=== PATIENT | male | born 1945 | race Caucasian/White ===

== ENCOUNTER 2016-09-17 12:13 | Emergency (ER) | payer OTHER ==
[~2016-09-17] VITALS: Ht 165.1 cm; Wt 68.0 kg
--- NOTE | 2016-09-17 12:30 | NUR ---
PATIENT BIB RA D/T UNABLE TO CARE FOR SELF X 1 DAY. PATIENT IS A/OX 4. BREATHING EVEN AND UNLABORED. NO SOB, NO DISTRESS. PATIENT IS TACHYCARDIC, WITH SLIGHTLY ELEVATED BP. SAFTEY AND COMFORT MEASURES IN PLACE. AWAITING MD ORDERS.
--- NOTE | 2016-09-17 12:55 | NUR ---
PATIENT REFUSED IV INSERTION FOR LABETOLOL ADMIN. MEDICATION NOT ADMINISTERED. MADE AWARE.
[2016-09-17] MEDS ORDERED: LABETALOL HCL (100MG) 100 MG TABLET PO ONE (13:00)
[2016-09-17] MEDS ORDERED: LABETALOL HCL IV 100MG VIAL IV ONE (13:00)
[2016-09-17] MEDS ORDERED: LABETALOL HCL (100MG) 100 MG TABLET ONE (13:11)
--- NOTE | 2016-09-17 13:39 | NUR ---
PTS CAREGIVER GILMA CALLED. SAID HE SPOKE TO THE PT AND WILL BE HERE SOON TO PICK HIM UP
[2016-09-17 14:25] VITALS: BP 144/92
--- NOTE | 2016-09-17 14:26 | NUR ---
Patient's caregiver arrived to bedside. Patient discharged to home in stable condition. Written and verbal after care instructions given. Patient verbalizes understanding of instruction.
== END 2016-09-17 14:25 | disposition home or self-care (01) ==
LOC: ER 12:15
DX: G20 Parkinson's disease (principal); I10 Essential (primary) hypertension; Z86.73 Personal history of transient ischemic attack (TIA), and cerebral infarction without residual deficits
CPT/HCPCS: A4606; Z7610

== ENCOUNTER 2017-09-28 02:35 | Inpatient (IN) | payer MEDICAID, OTHER ==
[~2017-09-28] VITALS: Ht 172.7 cm; Wt 62.6 kg
--- NOTE | 2017-09-28 02:45 | NUR ---
[id number] FR HOME FOR SOB, N/V, & LOW O2 SAT 85% ON RA. PT PLACED ON NR 15L/M CONSTRUCTION MATERIALS TESTER. PT IS AAOX4. SKIN HOT AND MOIST TO TOUCH. PER EMS, PT WAS EATING AND VOMITTED CONSTRUCTION MATERIALS TESTER. PT DENIES BEING NAUSEATED UPON ARRIVAL. MILD S/S OF DISTRESS NOTED IN PT. PT PLACED ON CYBER LEGAL ADVISOR AND POX.RESP EVEN AND UNLABORD WITH RR OF 24-28. PER MD, PT PLACED ON SIMPLE MASK AT 8L/M. MD BEDSIDE FOR EVAL. WILL CONTINUE TO MONITOR PT.
[2017-09-28] MEDS ORDERED: KETOROLAC TROMETHAMINE INJ 60 MG/2 ML VIAL IM ONE (02:49)
[2017-09-28] MEDS ORDERED: ONDANSETRON HCL/PF 4 MG/2 ML VIAL ONE (02:56)
[2017-09-28] MEDS ORDERED: ACETAMINOPHEN 650 MG/SUPP.RECT RC ONE ×2 (02:56→03:00)
[2017-09-28] MEDS ORDERED: ONDANSETRON HCL/PF 4 MG/2 ML VIAL IVP ONE (03:00)
[2017-09-28] MEDS ORDERED: IV NS 0.9% 1,000 ML BAG IV ONE (03:00)
[2017-09-28 03:04] LABS: APPEARANCE,URINE CLOUDY (CLEAR); BILIRUBIN,URINE NEGATIVE (NEGATIVE); BLOOD, URINE 3+ Ery/uL (NEGATIVE); COLOR,URINE YELLOW (YELLOW); KETONES,URINE NEGATIVE (NEGATIVE); LEUKOCYTE ESTERASE ,URINE 3+ (NEGATIVE); NITRITE, URINE NEGATIVE (NEGATIVE); PH,URINE 6.5 (5.0-8.0); PROTEIN,URINE 1+ mg/dl (NEGATIVE); UGLUCOSE NEGATIVE (NEGATIVE); UROBILINOGEN,URINE 0.2 EU/dL (0.2)
[2017-09-28 03:05] LABS: HEMATOCRIT 42 % (39-51); HEMOGLOBIN 13.8 g/dL (13.5-17.5); LYMPHOCYTES # (AUTO) 0.4 /CMM (0.8-4.8); LYMPHOCYTES % (AUTO) 2.9 % (20.0-44.0); MEAN CORPUSCULAR HEMOGLOBIN 30 PG (26.0-33.0); MEAN CORPUSCULAR HGB CONC 33 g/dl (31.0-36.0); MEAN CORPUSCULAR VOLUME 92 fL (80-96); MONOCYTES # (AUTO) 0.1 /CMM (0.1-1.30); MONOCYTES % (AUTO) 0.5 % (2.0-12.0); NEUTROPHILS # (AUTO) 11.7 /CMM (1.8-8.9); NEUTROPHILS % (AUTO) 96.6 % (43.0-81.0); PLATELET COUNT (AUTO) 271 /CMM (150-450); RDW COEFFICIENT OF VARIATION 13.1 (11.5-15.0); RED BLOOD CELL COUNT(AUTO) 4.59 MIL/uL (4.5-6.0); WHITE BLOOD COUNT (AUTO) 12.1 K/uL (4.3-11.0)
[2017-09-28 03:18] LABS: CALCIUM, SERUM 8.7 mg/dL (8.5-10.1); CARBON DIOXIDE 25 mmol/L (21-32); CHLORIDE 102 mmol/L (98-107); CREATININE 1.7 mg/dL (0.6-1.3); GLUCOSE 231 mg/dL (74-106); POTASSIUM 4.2 mmol/L (3.5-5.1); SODIUM SERUM 138 mmol/L (136-145); UREA NITROGEN, BLOOD 20 mg/dL (7-18)
[2017-09-28 03:20] LABS: INR 0.95 (0.87-1.13)
[2017-09-28 03:25] LABS: ALANINE AMINOTRANSFERASE 12 U/L (12-78); ALBUMIN 3.4 g/dL (3.4-5.0); ALKALINE PHOSPHATASE 119 U/L (46-116); ASPARTATE AMINOTRANSFERASE 23 U/L (15-37); BILIRUBIN,DIRECT 0.1 mg/dL (0.0-0.2); BILIRUBIN,TOTAL 0.6 mg/dL (0.2-1.0); TOTAL PROTEIN, SERUM 7.1 g/dL (6.4-8.2); TROPONIN I < 0.017 ng/mL (0.00-0.056)
[2017-09-28] MEDS ORDERED: LEVOFLOXACIN 750 MG /D5W 150ML PIGGYBACK IV ONE (03:30)
[2017-09-28] MEDS ORDERED: AZTREONAM 1 G in IV NS 0.9% 100 ML IV ONE (03:30)
[2017-09-28] MEDS ORDERED: AZTREONAM 1 G VIAL ONE (03:46)
[2017-09-28] MEDS ORDERED: LEVOFLOXACIN 750 MG /D5W 150ML 150 ML IV ONE (03:46)
--- NOTE | 2017-09-28 04:20 | NUR ---
REPORT GIVEN TO MONSE BARRETTELIA FOR LEVI
--- NOTE | 2017-09-28 04:24 | NUR ---
ENDORSED TO MONSE SINCLAIR CARLOS A TO START IV MEDICATION LEVAQUIN 750MG UPON ADMISSION TO FLOOR PER MD.
[2017-09-28] MEDS ORDERED: ACETAMINOPHEN 325 MG TABLET PO PRN (04:30)
[2017-09-28] MEDS ORDERED: MAGNESIUM HYDROXIDE 30 ML UDC PO PRN (04:30)
[2017-09-28] MEDS ORDERED: MAG HYDROX/AL HYDROX/SIMETH 30 ML UDC PO PRN (04:30)
[2017-09-28] MEDS ORDERED: HYDROCODONE/APAP 5/325MG 1 EACH TABLET PO PRN (04:30)
[2017-09-28] MEDS ORDERED: Z GUARD REMEDY 2 OZ OINT TP PRN (04:30)
[2017-09-28] MEDS ORDERED: ONDANSETRON HCL/PF 4 MG/2 ML VIAL IVP PRN (04:30)
[2017-09-28] MEDS: IV NS 0.9% 1,000 ML IV PRN (04:54)
[2017-09-28 05:00] VITALS: BP 100/61
--- NOTE | 2017-09-28 05:00 | NUR ---
MS DISPATCH MACHINE RUNNER NOTES RECEIVED FROM ER THIS 72 YO MALE,A/O X3,LIVES ALONE WITH CAREGIVER,WITH PRESENTING SYMPTOMS OF SOB NAUSEA AND VOMITING,WITH O2 SAT 85% ON RA. ADMITTED TO MED SURG BY DR ISAAC FOR PNA/UTI.WITH SALINE LOCK LEFT HAND #20,SALINE LOCK RIGHT FOREARM #18,NS 75ML/HR RATE IN PROGRESS.NOTED DRY WOUND ON LEFT HEEL 6X4 CM AND 1X1CM IN MEASURES.NO DISCHARGES NOTED.NOTED LUMP ON LEFT ELBOW AND RIGHT UPPER BACK.PICTURES TAKEN ON CHART.BED ON LOWEST POSITION AND LOCK.CALL LIGHT IN REACH,NEEDS ANTICIPATED.
--- NOTE | 2017-09-28 05:19 | NUR ---
MS RN NOTES STARTED ON LEVAQUIN 750MG IVP ONE TIME DOSE ORDERED BY ER DOCTOR.
[2017-09-28] MEDS ORDERED: LEVOFLOXACIN 750 MG /D5W 150ML 750 MG in PREMIX 1 EA IV ONE (05:30)
--- NOTE | 2017-09-28 05:30 | NUR ---
MS RN NOTES REPORTED BY PARTNERSHIP MARKETING MANAGER,LATEST LACTIC ACID POST 2,152 LITERS ON NS WAS 4.3.
--- NOTE | 2017-09-28 06:30 | NUR ---
MS RN NOTES RESTING COMFORTABLY ON BED,A/O X3,WORRIED ABOUT IS CAREGIVER.IV ABX LEVAQUIN AND ZOSYN TOLERATED WELL.IVF NS AT 75ML/HR RATE IN PROGRESS.KEPT NPO ORDERED.FOR SWALLOWING/PT/OT EVAL.WOUND CARE CONSULT TRIGGERED.O2 8-9 LITERS FACE MASK,O2 SAT 96%.IN NO ACUTE DISTRESS.WILL ENDORSE TO DAY NURSE FOR LEVI.
[2017-09-28] MEDS ORDERED: PIPERACILLIN /TAZOBACTAM 2.25 G VIAL IV ONE (06:36)
[2017-09-28] MEDS: PIPERACILLIN /TAZOBACTAM 2.25 G in IV NS 0.9% 50 ML IV SCH ×3 (06:49→17:35)
[2017-09-28 08:00] VITALS: BP 113/67
--- NOTE | 2017-09-28 08:00 | NUR ---
MS RN NOTES Pt in bed at lowest position, A/O x3. On 10L via face mask with no trouble breathing, will titrate as needed. Worried about caregiver and how he will get home, will try to contact caregiver. Currently NPO awaiting Speech Therapy Evaluation. Call light within reach and will continue to monitor.
--- NOTE | 2017-09-28 08:30 | NUR ---
MS RN Notes Caregiver presented at Bedside. Titrated O2 to 7L via face mask. Call light within reach and will continue to monitor
--- NOTE | 2017-09-28 08:50 | NUR ---
MS RN Notes Titrated pt Oxygen from 7L to 5L and switched him to Nasal Cannula. Call light within reach and will continue to monitor.
[2017-09-28] MEDS ORDERED: CARB1TAB21 PO (09:01)
[2017-09-28] MEDS ORDERED: CLOP75TA15 PO (09:01)
[2017-09-28] MEDS ORDERED: TEMA15CA PO (09:01)
[2017-09-28] MEDS ORDERED: OMEP20CA10 PO (09:01)
[2017-09-28] MEDS ORDERED: VALS1TAB6 PO (09:01)
--- NOTE | 2017-09-28 10:00 | NUR ---
MS RN NOTES DR FLORES MADE AWARE PATIENTS MED RECON IS NOT REVIEWED. STATES HE WILL REVIEW.
[2017-09-28] MEDS ORDERED: FEE PK DOSING 1 MIN EA MC ONE (11:35)
[2017-09-28] MEDS ORDERED: VANCOMYCIN 1 GM in IV D5W 250 ML IV ONE (12:00)
--- NOTE | 2017-09-28 12:00 | NUR ---
MS RN NOTES PATIENTS O2 TITRATED TO 3L VIA NASAL CANULA. TOLERATED WELL.
[2017-09-28] MEDS: ALBUTEROL FS 2.5 MG/0.5 ML VIAL.NEB NEB PRN (13:40)
[2017-09-28] MEDS: IPRATROPIUM NEB FS 0.5 MG/2.5 ML AMPUL.NEB NEB PRN (13:40)
[2017-09-28 15:34] LABS: RBC,URINE 21-50 /HPF (0-2); WBC,URINE 21-50 /HPF (0-3)
[2017-09-28 15:35] LABS: BACTERIA,URINE Many /HPF (None Seen); SQUAMOUS EPITHELIAL CELL,UR Many /HPF (None Seen)
[2017-09-28 16:00] VITALS: BP 134/80
[2017-09-28] MEDS: LACTOBACILLUS RHAMNOSUS GG 1 EACH CAP.SPRINK PO SCH (17:00)
[2017-09-28] MEDS: CARBIDOPA/LEVODOPA 25/100 MG 1 UDTAB PO SCH (19:20)
--- NOTE | 2017-09-28 19:27 | NUR ---
MS RN NOTES PATIENT IN BED RESTING NO SOB OR ACUTE DISTRESS NOTED. ALL DUE MEDICATIONS ADMINISTERED. ALL NEEDS MET ENDORSED CARE TO PM SHIFT.
--- NOTE | 2017-09-28 19:30 | NUR ---
MS/RN OPENING NOTES PT RECEIVED ASLEEP, AROUSABLE TO NAME. A/OX3. ON 3L O2 VIA NC, BREATHING EVEN AND UNLABORED. DENIES SOB OR PAIN AT THIS TIME. CONDOM CATH IN PLACE AND DRAINING TO GRAVITY. IV TO RFA PATENT AND INTACT RUNNING IVF ORDERED. BED IN LOW/LOCKED POSITION WITH CALL LIGHT IN REACH, SIDE RAILS UPX2. HEELS OFFLOADED. WILL CONTINUE TO MONITOR
[2017-09-28] MEDS ORDERED: ALBU1.257 INH (19:56)
[2017-09-28] MEDS ORDERED: TRAZ-182 PO (19:56)
[2017-09-28 19:58] VITALS: BP 122/70
[2017-09-28 20:00] VITALS: BP 122/70
[2017-09-28] MEDS ORDERED: FLUT12AE5 INH (20:05)
--- NOTE | 2017-09-28 21:10 | NUR ---
MS/RN NOTES PAGED [facility] FOR ORDERS FOR SLEEPING PILL PER PT REQUEST. AWAITING CALL BACK Addendum: 09/28/17 at 2146 by SYED SANCHEZ RN MISSED CALL BACK FROM DR. ISAAC. PAGED [facility] AGAIN AND SPOKE TO . MADE AWARE THAT PT TAKES TEMAZEPAM 15MG PO HR PRN. OKAY TO CONTINUE
[2017-09-28] MEDS: TEMAZEPAM 15 MG CAPSULE PO PRN (23:50)
[2017-09-29] MEDS: IV NS 0.9% 1,000 ML IV PRN ×2 (00:07→17:50)
[2017-09-29] MEDS: PIPERACILLIN /TAZOBACTAM 2.25 G in IV NS 0.9% 50 ML IV SCH ×2 (00:07→05:26)
[2017-09-29] MEDS ORDERED: VANCOMYCIN 0.75 GM in IV D5W 250 ML IV SCH (06:00)
[2017-09-29 06:40] LABS: ALANINE AMINOTRANSFERASE 20 U/L (12-78); ALBUMIN 2.4 g/dL (3.4-5.0); ALKALINE PHOSPHATASE 83 U/L (46-116); ASPARTATE AMINOTRANSFERASE 23 U/L (15-37); BILIRUBIN,TOTAL 0.5 mg/dL (0.2-1.0); CALCIUM, SERUM 8.3 mg/dL (8.5-10.1); CARBON DIOXIDE 29 mmol/L (21-32); CHLORIDE 107 mmol/L (98-107); CREATININE 1.2 mg/dL (0.6-1.3); EOSINOPHILS % (AUTO) 0.1 % (0.0-6.0); GLUCOSE 93 mg/dL (74-106); HEMATOCRIT 35 % (39-51); HEMOGLOBIN 11.7 g/dL (13.5-17.5); LYMPHOCYTES # (AUTO) 0.7 /CMM (0.8-4.8); MAGNESIUM 1.9 mg/dL (1.8-2.4); MEAN CORPUSCULAR HEMOGLOBIN 31 PG (26.0-33.0); MEAN CORPUSCULAR HGB CONC 34 g/dl (31.0-36.0); MEAN CORPUSCULAR VOLUME 92 fL (80-96); MONOCYTES # (AUTO) 0.5 /CMM (0.1-1.30); MONOCYTES % (AUTO) 5.3 % (2.0-12.0); NEUTROPHILS # (AUTO) 8.7 /CMM (1.8-8.9); NEUTROPHILS % (AUTO) 87.6 % (43.0-81.0); PHOSPHORUS 2.8 mg/dL (2.5-4.9); PLATELET COUNT (AUTO) 175 /CMM (150-450); RDW COEFFICIENT OF VARIATION 13.5 (11.5-15.0); RED BLOOD CELL COUNT(AUTO) 3.78 MIL/uL (4.5-6.0); SODIUM SERUM 143 mmol/L (136-145); TOTAL PROTEIN, SERUM 5.7 g/dL (6.4-8.2); UREA NITROGEN, BLOOD 16 mg/dL (7-18); WHITE BLOOD COUNT (AUTO) 9.9 K/uL (4.3-11.0)
[2017-09-29 06:44] LABS: CREATINE KINASE, TOTAL 142 U/L (39-308)
--- NOTE | 2017-09-29 07:32 | NUR ---
MS/RN CLOSING NOTES PT AWAKE, RESTING COMFORTABLY IN BED. BREATHING EVEN AND UNLABORED. REMAINS ON 3L O2 VIA NC. NO ACUTE DISTRESS OR SOB DURING SHIFT. IV TO RFA PATENT AND INTACT RUNNING IVF ORDERED. CONDOM CATH REPLACED DUE TO LEAKING, SIZE SMALL. URINE COLLECTED AND SENT TO LAB. NO SIGNIFICANT CHANGES OVERNIGHT. HEELS OFFLOADED AT ALL TIMES AND PROTECTED WITH MEPILEX. TURNED/REPOSITIONED Q2H. BED IN LOW/LOCKED POSITION WITH CALL LIGHT IN REACH. SIDE RAILS UPX2. ALL NEEDS MET. ENDORSED TO DAY SHIFT RN LEVI.
[2017-09-29 08:00] VITALS: BP 147/91
--- NOTE | 2017-09-29 08:00 | NUR ---
MS RN OPENING NOTES PT IN BED IN LOW LOCKED POSITION, ASLEEP AND AROUSABLE TO NAME. A/O X3. ON 3L O2 VIA NC, NO TROUBLE BREATHING AND DENIES SOB OR PAIN AT THIS TIME. CONDOM CATH IS IN PLACE AND DRAINING. IV IN RFA PATENT AND INTACT RUNNING IVF ORDERED. CALL LIGHT IN REACH, SIDE RAILS UPX2. HEELS OFFLOADED. WILL CONTINUE TO MONITOR
[2017-09-29 08:06] LABS: CREATININE, URINE 69.9 MG/DL (30.0-125.0); URINE TOTAL PROTEIN 32.9 mg/dL (0-11.9)
[2017-09-29] MEDS: LACTOBACILLUS RHAMNOSUS GG 1 EACH CAP.SPRINK PO SCH ×2 (09:03→17:50)
[2017-09-29] MEDS: CARBIDOPA/LEVODOPA 25/100 MG 1 UDTAB PO SCH ×5 (09:03→21:23)
--- NOTE | 2017-09-29 10:15 | NUR ---
WOUND CARE CONSULT PATIENT SEEN AND SKIN INTEGRITY ASSESSMENT DONE. PATIENT PRESENTS WITH LEFT HEEL/ANKLE OPEN WOUND. PLEASE SEE DIRECTOR ORACLE RETAIL ASSESSMENT IN PCS. PATIENT WITH RODRÍGUEZ OF 12. RECOMMEND PODIATRY CONSULT AND WILL DEFER WOUND TREATMENT. RECOMMEND TURNING AND REPOSITIONING Q2H, BILATERAL HEEL FLOATING, CONTINUE USE OF Z GUARD TO PERINEAL, SACRAL AND BUTTOCKS FOR SKIN/MOISTURE MANAGEMENT. ALL PRESSURE ULCER PREVENTION MEASURES NOTED TO BE IN PLACE. ALL DISCUSSED WITH RN AT BEDSIDE. WILL SEE PATIENT PRN. MD IN AGREEMENT WITH PLAN OF CARE. Addendum: 09/29/17 at 1109 by MARIBELL BOX RN Amended: Links added.
[2017-09-29] MEDS ORDERED: HYDROGEL DRESSING 90 GM TUBE TP PRN (11:00)
[2017-09-29] MEDS ORDERED: HYDROGEL DRESSING 90 GM TUBE TP SCH (11:00)
[2017-09-29] MEDS: PIPERACILLIN /TAZOBACTAM 3.375 G in IV D5W 50 ML IV SCH ×2 (12:23→18:35)
[2017-09-29 16:00] VITALS: BP 147/92
[2017-09-29] MEDS: ALBUTEROL FS 2.5 MG/0.5 ML VIAL.NEB NEB PRN (17:51)
[2017-09-29] MEDS: IPRATROPIUM NEB FS 0.5 MG/2.5 ML AMPUL.NEB NEB PRN (17:53)
[2017-09-29] MEDS ORDERED: ALBUTEROL FS 2.5 MG/0.5 ML VIAL.NEB NEB PRN (18:00)
--- NOTE | 2017-09-29 18:34 | NUR ---
MS RN NOTES PATIENT IN BED RESTING NO SOB OR ACUTE DISTRESS NOTED. ALL DUE MEDICATIONS ADMINISTERED. ALL NEEDS MET ENDORSED CARE TO PM SHIFT.
--- NOTE | 2017-09-29 19:00 | NUR ---
MS RN OPENING NOTES PATIENT IN BED RESTING, NO SOB OR DISTRESS NOTED, PT DENIES PAIN AT THIS TIME CANDOM CATHETER IN PLACE , ONGOING FLUID NS 0.9 % AT 75 ML/H . R FA 18 g , INTACT.PT A/O X3 AND RESPONSIVE. WILL CONTINUE TO MONITOR
[2017-09-29] MEDS: VANCOMYCIN 0.75 GM in IV D5W 250 ML IV SCH (19:30)
[2017-09-29 20:00] VITALS: BP 115/65
[2017-09-29] MEDS: FLOVENT INH SCH (21:07)
[2017-09-29] MEDS: TEMAZEPAM 15 MG CAPSULE PO PRN (21:08)
[2017-09-29] MEDS: TRAZODONE 50 MG TABLET PO PRN (21:23)
[2017-09-29] MEDS ORDERED: TEMAZEPAM 15 MG CAPSULE PO PRN (22:00)
[2017-09-30] MEDS: PIPERACILLIN /TAZOBACTAM 3.375 G in IV D5W 50 ML IV SCH ×5 (00:08→23:59)
--- NOTE | 2017-09-30 06:10 | NUR ---
MS RN CLOSING NOTES PATIENT IN BED RESTING, A/O X3, RESPONSIVE. NO SOB OR DISTRESS NOTED, PT ON O2 THERAPY VIA NC 2L. CONDOM CATHETER IN PLACE WITH OUTPUT 1500 ML. ONGOING FLUID NS 0.9 % AT 75 ML/HR RIGHT FA #18. PT TURNED AND REPOSITIONED EVERY [address]ETY PRECAUTIONS IN PLACE, CALL LIGHT WITHIN REACH. WILL ENDORSE TO NEXT SHIFT FOR LEVI.
[2017-09-30 06:54] LABS: CALCIUM, SERUM 8.4 mg/dL (8.5-10.1); CARBON DIOXIDE 29 mmol/L (21-32); CHLORIDE 107 mmol/L (98-107); GLUCOSE 94 mg/dL (74-106); MAGNESIUM 1.9 mg/dL (1.8-2.4); PHOSPHORUS 2.1 mg/dL (2.5-4.9); POTASSIUM 3.9 mmol/L (3.5-5.1); SODIUM SERUM 142 mmol/L (136-145); UREA NITROGEN, BLOOD 15 mg/dL (7-18); VANCOMYCIN,TROUGH 11 ug/ml (12-20)
[2017-09-30] MEDS: VANCOMYCIN 0.75 GM in IV D5W 250 ML IV SCH ×2 (07:15→19:29)
[2017-09-30 08:00] VITALS: BP 133/78
[2017-09-30] MEDS: HYDROCHLOROTHIAZIDE 25 MG TABLET PO SCH ×2 (09:00→20:25)
[2017-09-30] MEDS: CLOPIDOGREL BISULFATE 75 MG TABLET PO SCH (09:00)
[2017-09-30] MEDS: VALSARTAN 80 MG TABLET PO SCH ×2 (09:00→20:24)
[2017-09-30] MEDS: PANTOPRAZOLE 40 MG TABLET.DR PO SCH (09:27)
[2017-09-30] MEDS: FLOVENT INH SCH ×2 (09:27→20:51)
[2017-09-30] MEDS: CARBIDOPA/LEVODOPA 25/100 MG 1 UDTAB PO SCH ×4 (09:28→20:44)
[2017-09-30] MEDS: LACTOBACILLUS RHAMNOSUS GG 1 EACH CAP.SPRINK PO SCH ×2 (09:28→18:26)
[2017-09-30 10:00] LABS: BASOPHILS % (AUTO) 0.1 % (0.0-2.0); EOSINOPHILS % (AUTO) 0.6 % (0.0-6.0); HEMATOCRIT 36 % (39-51); HEMOGLOBIN 11.4 g/dL (13.5-17.5); LYMPHOCYTES % (AUTO) 10.5 % (20.0-44.0); MEAN CORPUSCULAR HEMOGLOBIN 30 PG (26.0-33.0); MEAN CORPUSCULAR HGB CONC 32 g/dl (31.0-36.0); MEAN CORPUSCULAR VOLUME 93 fL (80-96); MONOCYTES # (AUTO) 0.5 /CMM (0.1-1.30); MONOCYTES % (AUTO) 4.9 % (2.0-12.0); NEUTROPHILS # (AUTO) 8.1 /CMM (1.8-8.9); NEUTROPHILS % (AUTO) 83.9 % (43.0-81.0); PLATELET COUNT (AUTO) 171 /CMM (150-450); RDW COEFFICIENT OF VARIATION 13.3 (11.5-15.0); RED BLOOD CELL COUNT(AUTO) 3.83 MIL/uL (4.5-6.0); WHITE BLOOD COUNT (AUTO) 9.6 K/uL (4.3-11.0)
[2017-09-30] MEDS: FLUTICASONE 220MCG 1 INHALER IH SCH ×2 (10:00→18:00)
--- NOTE | 2017-09-30 10:00 | NUR ---
refused several meds in am including bp meds.this was discouraged by rn,but pt. still refused.
[2017-09-30] MEDS ORDERED: NEUTRA PHOS 1 POWD.PACKET PO ONE (10:30)
[2017-09-30] MEDS: IV NS 0.9% 1,000 ML IV PRN (10:43)
[2017-09-30] MEDS ORDERED: K PHOS NEUTRAL 250 MG TABLET PO ONE (11:30)
[2017-09-30 12:18] LABS: PTH, INTACT 41 pg/mL (15-65)
[2017-09-30] MEDS ORDERED: MENTHOL/CETYLPYRD (CEPACOL) 1 LOZ LOZENGE PO PRN (15:00)
[2017-09-30 16:00] VITALS: BP_SYST 133; BP_SYST 138; BP_DIAS 78; BP_DIAS 81
--- NOTE | 2017-09-30 18:00 | NUR ---
neutra phos given for low phosphorous.
--- NOTE | 2017-09-30 19:40 | NUR ---
MS RN NOTES RECEIVED ON BED A/O X3,BREATHING REGULAR,O2 IN USED 2L/NC,O2 SAT 96%.SALINE LOCK RFA INTACT AND PATENT,NS 75ML/HR RATE IN PROGRESS,SALINE LOCK LEFT HAND INTACT AND PATENT.BLOOD PRESSURE ON HIGH SIDE,PER DAYSHIFT NURSE,PATIENT REFUSED MEDS.S/P WOUND DEBRIDEMENT ON LEFT HEEL.DRESSING INTACT AND DRY,ELEVATED ON PILLOW.C/O PAIN 6/10 ON PAIN SCALE,WILL MEDICATE.KCI MATTRESS IN USED FOR SKIN MANAGEMENT.WITH MCKENNA CATH IN PLACE DRAINING YELLOWISH OUTPUT.CALL LIGHT IN REACH,NEEDS ANTICIPATED.
[2017-09-30 20:00] VITALS: BP 184/94
--- NOTE | 2017-09-30 20:24 | NUR ---
MS RN NOTES PAIN MANAGEMENT C/O PAIN VIA LEFT FOOT.MEDICATED WITH NORCO 5/325MG,1TAB PO GIVEN PER PATIENT REQUEST.
--- NOTE | 2017-09-30 20:24 | NUR ---
MS RN NOTES DIOVAN 160MF AND HYDRODIURIL 25MG PO GIVEN UNSCHEDULED FOR HIGH BLOOD PRESSURE.
[2017-09-30] MEDS: TEMAZEPAM 15 MG CAPSULE PO PRN (23:55)
--- NOTE | 2017-09-30 23:55 | NUR ---
MS RN NOTES C/O INSOMNIA,RESTORIL 15MG PO GIVEN ORDERED,ALONG WITH TRAZODONE 50MG PO ORDERED PER PATIENT REQUEST.
[2017-09-30] MEDS: TRAZODONE 50 MG TABLET PO PRN (23:58)
[2017-10-01] MEDS: IV NS 0.9% 1,000 ML IV PRN ×2 (01:13→17:45)
--- NOTE | 2017-10-01 04:30 | NUR ---
MS RN NOTES MORNING CARE RENDERED BY MIKAYLA AZAR,CONDOM CATH ACCIDENTALLY PULLED.PLACE NEW CONDOM CATH.
[2017-10-01] MEDS: PIPERACILLIN /TAZOBACTAM 3.375 G in IV D5W 50 ML IV SCH ×4 (05:24→23:54)
[2017-10-01] MEDS: IPRATROPIUM NEB FS 0.5 MG/2.5 ML AMPUL.NEB NEB PRN (05:43)
[2017-10-01] MEDS: ALBUTEROL FS 2.5 MG/0.5 ML VIAL.NEB NEB PRN (05:43)
[2017-10-01] MEDS: VANCOMYCIN 0.75 GM in IV D5W 250 ML IV SCH ×2 (06:01→18:13)
--- NOTE | 2017-10-01 06:47 | NUR ---
MS RN NOTES FAIRLY RESTED AT [facility],IV ABX TOLERATED WELL,NO SOB.PATIENT OFF OXYGEN REQUESTED BY PATIENT FOR A LITTLE WHILE.LATEST O2 SAT 98%.REPOSITION PER PROTOCOL.IVF INFUSING AT SAME RATE.CALL LIGHT IN REACH,NEEDS ATTENDED.WILL ENDORSE TO DAYSHIFT FOR LEVI.
--- NOTE | 2017-10-01 07:57 | NUR ---
MS RN NOTES PATIENT RECEIVED RESTING INSIDE ROOM. AWAKE, ALERT AND ORIENTED. VERBALLY RESPONSIVE AND RESPONDS TO VERBAL AND TACTILE STIMULI. BREATHING EVEN AND UNLABORED. NO SOB OR ACUTE DISTRESS NOTED AT THIS TIME. PATIENT AFEBRILE, SKIN DRY AND WARM TO TOUCH. NO CHANGES IN LOC NOTED. IV INTACT AND PATENT, NO SWELLING NOTED ON SITE. WILL CONTINUE TO MONITOR. BED LOCKED AND IN LOW POSITION. BILATERAL UPPER SIDE RAILS UP AND LOCKED. CALL LIGHT WITHIN EASY REACH
[2017-10-01 08:00] VITALS: BP 180/100
[2017-10-01] MEDS: FLUTICASONE 220MCG 1 INHALER IH SCH ×2 (09:00→17:00)
[2017-10-01] MEDS: CLOPIDOGREL BISULFATE 75 MG TABLET PO SCH (09:02)
[2017-10-01] MEDS: LACTOBACILLUS RHAMNOSUS GG 1 EACH CAP.SPRINK PO SCH ×2 (09:02→17:58)
[2017-10-01] MEDS: VALSARTAN 80 MG TABLET PO SCH (09:02)
[2017-10-01] MEDS: HYDROCHLOROTHIAZIDE 25 MG TABLET PO SCH (09:02)
[2017-10-01] MEDS: PANTOPRAZOLE 40 MG TABLET.DR PO SCH (09:02)
[2017-10-01] MEDS: CARBIDOPA/LEVODOPA 25/100 MG 1 UDTAB PO SCH ×4 (09:02→21:05)
[2017-10-01] MEDS: FLOVENT INH SCH ×2 (09:03→21:05)
--- NOTE | 2017-10-01 09:13 | NUR ---
MS RN NOTES PATIENT WITH 2 ORDERS OF FLOVENT 220MCG, 1ST ORDER HOME MEDICATION Q12 AND ANOTHER FOR BID. VERIFIED WITH PATIENT THAT HE ONLY TAKES IT 1 PUFF PER DOSE ABOUT 2 TIMES A DAY. WILL VERIFY MEDICATION ORDER WITH MD.
[2017-10-01 09:31] LABS: BASOPHILS % (AUTO) 0.1 % (0.0-2.0); EOSINOPHILS % (AUTO) 0.8 % (0.0-6.0); HEMATOCRIT 38 % (39-51); HEMOGLOBIN 12.4 g/dL (13.5-17.5); LYMPHOCYTES # (AUTO) 0.7 /CMM (0.8-4.8); LYMPHOCYTES % (AUTO) 8.5 % (20.0-44.0); MEAN CORPUSCULAR HEMOGLOBIN 30 PG (26.0-33.0); MEAN CORPUSCULAR HGB CONC 33 g/dl (31.0-36.0); MEAN CORPUSCULAR VOLUME 93 fL (80-96); MONOCYTES # (AUTO) 0.4 /CMM (0.1-1.30); MONOCYTES % (AUTO) 5.2 % (2.0-12.0); NEUTROPHILS # (AUTO) 6.8 /CMM (1.8-8.9); NEUTROPHILS % (AUTO) 85.4 % (43.0-81.0); PLATELET COUNT (AUTO) 211 /CMM (150-450); RED BLOOD CELL COUNT(AUTO) 4.08 MIL/uL (4.5-6.0)
[2017-10-01 09:41] LABS: CALCIUM, SERUM 8.4 mg/dL (8.5-10.1); CARBON DIOXIDE 33 mmol/L (21-32); CHLORIDE 105 mmol/L (98-107); CREATININE 1.1 mg/dL (0.6-1.3); GLUCOSE 143 mg/dL (74-106); SODIUM SERUM 143 mmol/L (136-145); UREA NITROGEN, BLOOD 9 mg/dL (7-18)
[2017-10-01] MEDS: POTASSIUM CHLORIDE 20 MEQ TAB.PRT.SR PO SCH ×2 (12:39→13:03)
[2017-10-01 16:00] VITALS: BP 150/86
--- NOTE | 2017-10-01 18:50 | NUR ---
MS RN NOTES PATIENT RESTING INSIDE ROOM. AWAKE, ALERT AND ORIENTED X 4, VERBALLY RESPONSIVE AND RESPONDS TO VERBAL AND TACTILE STIMULI. BREATHING EVEN AND UNLABORED. NO SOB OR ACUTE DISTRESS NOTED AT THIS TIME. PATIENT CALM AND RELAXED. NO CHANGES IN LOC NOTED AT THIS TIME. PATIENT AFEBRILE, SKIN DRY AND WARM TO TOUCH. IV INTACT AND PATENT, NO SWELLING OR BLEEDING NOTED ON SITE. CONDOM CATHETER IN PLACE WITH YELLOW URINE OUTPUT ON COLLECTING BAG. WILL ENDORSE TO INCOMING SHIFT FOR LEVI. BED LOCKED AND IN LOW POSITION. BILATERAL UPPER SIDE RAILS UP AND LOCKED. CALL LIGHT WITHIN EASY REACH
--- NOTE | 2017-10-01 19:00 | NUR ---
MS RN OPENING NOTES PT SITTING IN BED, EATING. PT A/OX4 AND RESPONSIVE. BREATHING NON LABORED AND NO DISTRESS NOTED. PT DENIES PAIN AT THIS TIME.PT ON O2 VIA NC 2L. IV LINE INTACT AND PATENT, ONGOING NS 0.9% AT 75 ML/HR. SAFETY PRECAUTIONS IN PLACE, CALL LIGHT WITHIN REACH. WILL CONTINUE TO MONITOR
[2017-10-01 20:00] VITALS: BP 175/111
--- NOTE | 2017-10-01 20:27 | NUR ---
PT HAS BP 191/110 . NOTIFIED THEORETICAL PHYSICIST MD ISAAC WITH NEW ORDER TO GIVE CLONIDINE 0.1MG Q 6HRS PRN IF SBP>160. ORDER NOTED & CARRIED OUT.
[2017-10-01] MEDS: CLONIDINE HCL 0.1 MG TABLET PO PRN (20:38)
[2017-10-01] MEDS: TEMAZEPAM 15 MG CAPSULE PO PRN (21:05)
[2017-10-01] MEDS: TRAZODONE 50 MG TABLET PO PRN (21:05)
[2017-10-02] MEDS: CLONIDINE HCL 0.1 MG TABLET PO PRN ×2 (04:26→18:33)
--- NOTE | 2017-10-02 05:00 | NUR ---
WOUND PICTURES NOT TAKEN TONIGHT. PT S/P DEBRIDEMENT 09/29/17 HAS NO ORDER FOR WOUND CARE.
[2017-10-02] MEDS: PIPERACILLIN /TAZOBACTAM 3.375 G in IV D5W 50 ML IV SCH ×4 (05:46→23:02)
[2017-10-02] MEDS: VANCOMYCIN 0.75 GM in IV D5W 250 ML IV SCH ×2 (05:46→18:41)
[2017-10-02 07:09] LABS: CALCIUM, SERUM 8.8 mg/dL (8.5-10.1); CARBON DIOXIDE 32 mmol/L (21-32); CHLORIDE 104 mmol/L (98-107); GLUCOSE 106 mg/dL (74-106); POTASSIUM 3.6 mmol/L (3.5-5.1); SODIUM SERUM 142 mmol/L (136-145); UREA NITROGEN, BLOOD 11 mg/dL (7-18)
--- NOTE | 2017-10-02 07:12 | NUR ---
MS RN CLOSING NOTES PATIENT RESTING IN BED. AWAKE, ALERT AND ORIENTED X 4, VERBALLY RESPONSIVE. BREATHING EVEN AND UNLABORED. NO SOB OR ACUTE DISTRESS NOTED AT THIS TIME. IV INTACT AND PATENT. CONDOM CATHETER IN PLACE WITH.BP WNR. WILL ENDORSE TO NEXT SHIFT FOR LEVI. BED LOCKED AND IN LOW POSITION. BILATERAL UPPER SIDE RAILS UP AND LOCKED. CALL LIGHT WITHIN REACH.
--- NOTE | 2017-10-02 07:15 | NUR ---
MS RN OPENING NOTES RECEIVED PATIENT IN BED RESTING. A/O X4, ABLE TO MAKE NEEDS KNOWN. NO ACUTE DISTRESS, NO SOB. DENIED PAIN OR DISCOMFORT AT THE MOMENT. IV SITE INTACT AND PATENT. KEPT PATIENT SAFE AND COMFORTABLE. BED IN LOW/LOCKED POSITION, SIDERAILS UPX2, CALL LIGHT IN REACH. WILL CONTINUE TO MONITOR ACCORDINGLY.
--- NOTE | 2017-10-02 07:20 | NUR ---
RN NOTES PATIENT HAS CONDOM CATHETER IN PLACE, DRAINING CLEAR YELLOW URINE.
[2017-10-02 08:00] VITALS: BP 149/98
[2017-10-02 08:08] LABS: *SPE ALBUMIN 2.5 g/dL (2.9-4.4); *SPE ALPHA-1-GLOBULIN 0.4 g/dL (0.0-0.4); *SPE ALPHA-2-GLOBULIN 0.9 g/dL (0.4-1.0); *SPE BETA GLOBULIN 0.7 g/dL (0.7-1.3); *SPE GLOBULIN, TOTAL 2.5 g/dL (2.2-3.9); *SPE M-SPIKE Not Observed g/dL (Not Observed); *SPEGAMMA GLOBULIN 0.5 g/dL (0.4-1.8)
[2017-10-02] MEDS: PANTOPRAZOLE 40 MG TABLET.DR PO SCH (08:11)
[2017-10-02] MEDS: LACTOBACILLUS RHAMNOSUS GG 1 EACH CAP.SPRINK PO SCH ×2 (08:11→17:52)
[2017-10-02] MEDS: CARBIDOPA/LEVODOPA 25/100 MG 1 UDTAB PO SCH ×4 (08:12→21:07)
[2017-10-02] MEDS: CLOPIDOGREL BISULFATE 75 MG TABLET PO SCH (08:12)
[2017-10-02] MEDS: HYDROCHLOROTHIAZIDE 25 MG TABLET PO SCH (08:14)
[2017-10-02] MEDS: VALSARTAN 80 MG TABLET PO SCH (08:15)
[2017-10-02] MEDS: FLOVENT INH SCH ×2 (09:00→21:00)
[2017-10-02] MEDS: FLUTICASONE 220MCG 1 INHALER IH SCH ×2 (09:00→17:00)
[2017-10-02] MEDS: DAKINS QUARTER STRENGTH (0.125%) 480 ML BOTTLE TOP SCH (13:50)
[2017-10-02] MEDS ORDERED: CEPH-570 PO (14:18)
--- NOTE | 2017-10-02 14:30 | NUR ---
RN NOTES DR ZAMORA AT BEDSIDE DOING WOUND CARE TO PATIENT.
--- NOTE | 2017-10-02 16:06 | NUR ---
PATIENT FOR DISCHARGE. PATIENT'S HOME MEDS RETURNED, RECEIVED BY AMIRAH (CAREGIVER).
--- NOTE | 2017-10-02 18:55 | NUR ---
SUPPOSED TO BE TRANSPORT BY LOSS CONTROL REPRESENTATIVE BUT AK=205/98. TRANSPORT WAS CANCELLED AND PLACED PATIENT ON "WILL CALL". DG=313/98, CLONIDINE 0.1 MG PO GIVEN ORDERED. WILL MONIOTR ACCORDINGLY.
--- NOTE | 2017-10-02 19:20 | NUR ---
RN OPENING NOTES PT AWAKE AND ALERT RESTING IN BED. NO COMPLAINTS OF PAIN, SOB, OR DISTRESS AT THIS TIME. PER DAY SHIFT NURSE PATIENT READY FOR DISCHARGE BUT BP WAS ELEVATED. PT GIVEN CLONIDINE @1833. WILL CONTINUE TO MONITOR PT BLOOD PRESSURE.
--- NOTE | 2017-10-02 19:23 | NUR ---
RN CLOSING NOTES PATIENT IN STABLE CONDITION. ALL NEEDS ATTENDED AND PROVIDED. KEPT PATIENT SAFE AND COMFORTABLE. TIRNED AND REPOSITIONED PATIENT EVERY 2 HOURS NEEDED. BED IN LOW/LOCKED POSITION, SIDERAILS UPX2, CALL LIGHT IN REACH. ENDORSED TO NIGHT RN FOR LEVI. PATIENT FOR DISCHARGE, "WILL CALL"
--- NOTE | 2017-10-02 19:51 | NUR ---
RN NOTES PT REFUSED SKIN PHOTO DT RECENT WOUND CARE BY DR ZAMORA
[2017-10-02 20:00] VITALS: BP 165/104
--- NOTE | 2017-10-02 20:52 | NUR ---
RN NOTES PT BLOOD PRESSURES CONTINUES TO BE ELEVATED @2030 158/100. SPOKE TO CAREGIVER AND HE STATED THAT HE WOULD NOT BE ABLE TO GO HOME WITH THE PATIENT TONIGHT. PER DR ISAAC, PT IS OKAY TO STAY ONE MORE NIGHT TO STABILIZE PT BLOOD PRESSURE.
[2017-10-02] MEDS: TRAZODONE 50 MG TABLET PO PRN (22:24)
[2017-10-02] MEDS: TEMAZEPAM 15 MG CAPSULE PO PRN (22:50)
[2017-10-02] MEDS: IV NS 0.9% 1,000 ML IV PRN (22:53)
[2017-10-03] MEDS: VANCOMYCIN 0.75 GM in IV D5W 250 ML IV SCH (05:00)
[2017-10-03] MEDS: PIPERACILLIN /TAZOBACTAM 3.375 G in IV D5W 50 ML IV SCH ×2 (06:19→12:26)
--- NOTE | 2017-10-03 07:00 | NUR ---
ms rn initial notes Received patient in bed, awake, head of bed elevated no SOB or distress noted. On room air and tolerated well, no complaint of pain or discomfort noted. IV intact and patent with IVF infusing well. Patient is alert and oriented x 3, verbally responsive and able to make needs known. Call light with in patient reach, will continue to monitor accordingly.
[2017-10-03 07:14] LABS: CALCIUM, SERUM 9.4 mg/dL (8.5-10.1); CARBON DIOXIDE 26 mmol/L (21-32); CHLORIDE 102 mmol/L (98-107); CREATININE 1.1 mg/dL (0.6-1.3); GLUCOSE 114 mg/dL (74-106); SODIUM SERUM 139 mmol/L (136-145); UREA NITROGEN, BLOOD 18 mg/dL (7-18)
--- NOTE | 2017-10-03 07:55 | NUR ---
RN CLOSING NOTES PT AWAKE AND ALERT RESTING IN BED. NO COMPLAINTS OF PAIN, SOB, OR DISTRESS OVERNIGHT. PT READY FOR DISCHARGE. WILL ENDORSE TO DAY SHIFT NURSE FOR CONTINUITY OF CARE.
[2017-10-03 08:00] VITALS: BP 163/84
[2017-10-03] MEDS: CARBIDOPA/LEVODOPA 25/100 MG 1 UDTAB PO SCH ×2 (08:14→12:26)
[2017-10-03] MEDS: LACTOBACILLUS RHAMNOSUS GG 1 EACH CAP.SPRINK PO SCH (08:14)
[2017-10-03] MEDS: CLOPIDOGREL BISULFATE 75 MG TABLET PO SCH (08:14)
[2017-10-03] MEDS: PANTOPRAZOLE 40 MG TABLET.DR PO SCH (08:14)
[2017-10-03] MEDS: VALSARTAN 80 MG TABLET PO SCH (08:16)
[2017-10-03] MEDS: HYDROCHLOROTHIAZIDE 25 MG TABLET PO SCH (08:16)
[2017-10-03] MEDS: FLOVENT INH SCH (08:18)
[2017-10-03] MEDS: FLUTICASONE 220MCG 1 INHALER IH SCH (08:18)
--- NOTE | 2017-10-03 10:19 | NUR ---
MS RN NOTES Transfer care given to Gwendolyn to continue care.
--- NOTE | 2017-10-03 10:20 | NUR ---
ms rn received patient on bed, awake,alert,oriented x4,not in any form of distress, respirations even and unlabored,no sob noted, lungs are clear,abdomen soft,positive bowel sounds., denies pain at this time,all needs attended.
[2017-10-03 10:41] VITALS: BP 116/69
[2017-10-03] MEDS: DAKINS QUARTER STRENGTH (0.125%) 480 ML BOTTLE TOP SCH (12:37)
[2017-10-03 14:29] VITALS: BP 161/96
[2017-10-03] MEDS: CLONIDINE HCL 0.1 MG TABLET PO PRN (14:29)
--- NOTE | 2017-10-03 15:10 | NUR ---
MS RN PATIENT WENT HOME VIA AMBULANCE,PATIENT REFUSED TO TAKE PICTURE AT HIS LEFT HEEL A ND REFUSE DRESSING CHANGE, ALL NEEDS ATTENDED.
== END 2017-10-03 15:00 | disposition home health service (06) | DRG 720 ==
LOC: ER 02:36 → TELE 04:08 → MED 10:19
PROVIDERS: ADMIT Internal Medicine; ATTEND Internal Medicine
PROC: 0JBR0ZZ Excision of Left Foot Subcutaneous Tissue and Fascia, Open Approach (ICD-10-PCS; principal; 2017-09-29)
PROC: 0HBRXZZ Excision of Toe Nail, External Approach (ICD-10-PCS; 2017-10-02)
DX: A41.9 Sepsis, unspecified organism (principal); N17.0 Acute kidney failure with tubular necrosis; J96.91 Respiratory failure, unspecified with hypoxia; J69.0 Pneumonitis due to inhalation of food and vomit; E87.2 Acidosis; L89.623 Pressure ulcer of left heel, stage 3; N39.0 Urinary tract infection, site not specified; Z86.73 Personal history of transient ischemic attack (TIA), and cerebral infarction without residual deficits; E87.6 Hypokalemia; I10 Essential (primary) hypertension; K21.9 Gastro-esophageal reflux disease without esophagitis; G20 Parkinson's disease; R65.20 Severe sepsis without septic shock; L89.522 Pressure ulcer of left ankle, stage 2; L53.8 Other specified erythematous conditions; R21 Rash and other nonspecific skin eruption; L60.3 Nail dystrophy; M21.379 Foot drop, unspecified foot; J44.0 Chronic obstructive pulmonary disease with (acute) lower respiratory infection; S22.42XS Multiple fractures of ribs, left side, sequela; B96.1 Klebsiella pneumoniae [K. pneumoniae] as the cause of diseases classified elsewhere; B96.5 Pseudomonas (aeruginosa) (mallei) (pseudomallei) as the cause of diseases classified elsewhere
CPT/HCPCS: 36415; 71045-TC; 80048-TC; 80053-TC; 80076-TC; 80202-TC; 81000-TC; 82550-TC; 82570-TC; 83605-TC; 83735-TC; 83970; 84100-TC; 84155; 84155-TC; 84165; 84300-TC; 84484-TC; 85025-TC; 85730-TC; 87040-TC; 87081-TC; 87086-TC; 87186-TC; 92611-TC; 97110-TC; 97116-TC; 97530-TC; A4216; A4349; A4606; A6248; A6402; A6403; J1885; J1956; J2405; J2543; J3370; J3490; J7030; J7050; J7060; Z7610

== ENCOUNTER 2017-10-17 15:15 | Inpatient (IN) | payer OTHER ==
[~2017-10-17] VITALS: Ht 172.7 cm; Wt 61.9 kg
[~2017-10-17 15:15] MED LIST: ALBU1.257 INH; CARB1TAB21 PO; CEPH-570 PO; CLOP75TA15 PO; FLUT12AE5 INH; OMEP20CA10 PO; TEMA15CA PO; TRAZ-182 PO; VALS1TAB6 PO
[2017-10-17 15:50] LABS: BASOPHILS # (AUTO) 0.1 /CMM (0.0-0.2); BASOPHILS % (AUTO) 1.4 % (0.0-2.0); EOSINOPHILS % (AUTO) 0.4 % (0.0-6.0); HEMATOCRIT 43 % (39-51); HEMOGLOBIN 13.8 g/dL (13.5-17.5); LYMPHOCYTES # (AUTO) 0.9 /CMM (0.8-4.8); LYMPHOCYTES % (AUTO) 8.6 % (20.0-44.0); MEAN CORPUSCULAR HEMOGLOBIN 29 PG (26.0-33.0); MEAN CORPUSCULAR HGB CONC 32 g/dl (31.0-36.0); MEAN CORPUSCULAR VOLUME 89 fL (80-96); MONOCYTES # (AUTO) 0.4 /CMM (0.1-1.30); MONOCYTES % (AUTO) 3.9 % (2.0-12.0); NEUTROPHILS # (AUTO) 9.1 /CMM (1.8-8.9); NEUTROPHILS % (AUTO) 85.7 % (43.0-81.0); PLATELET COUNT (AUTO) 409 /CMM (150-450); RDW COEFFICIENT OF VARIATION 12.6 (11.5-15.0); RED BLOOD CELL COUNT(AUTO) 4.81 MIL/uL (4.5-6.0); WHITE BLOOD COUNT (AUTO) 10.5 K/uL (4.3-11.0)
[2017-10-17 15:59] LABS: CALCIUM, SERUM 9.4 mg/dL (8.5-10.1); CARBON DIOXIDE 30 mmol/L (21-32); CHLORIDE 103 mmol/L (98-107); GLUCOSE 114 mg/dL (74-106); POTASSIUM 3.4 mmol/L (3.5-5.1); SODIUM SERUM 139 mmol/L (136-145); UREA NITROGEN, BLOOD 18 mg/dL (7-18)
[2017-10-17] MEDS ORDERED: CEFTRIAXONE 1GM BAG (ER ONLY) 50 ML IV ONE (16:00)
[2017-10-17] MEDS ORDERED: ACETAMINOPHEN ES 500 MG TABLET ONE (16:00)
[2017-10-17] MEDS ORDERED: ACETAMINOPHEN ES 500 MG TABLET PO ONE (16:00)
[2017-10-17] MEDS ORDERED: ENALAPRILAT DIHYD. (2.5MG/ML) 1.25 MG/ML VIAL IV PRN (16:00)
[2017-10-17] MEDS ORDERED: IV NS 0.9% 1,000 ML BAG IV ONE (16:00)
[2017-10-17] MEDS ORDERED: ENALAPRILAT DIHYD. (2.5MG/ML) 1.25 MG/ML VIAL IV ONE (16:01)
[2017-10-17 16:04] LABS: ALANINE AMINOTRANSFERASE 20 U/L (12-78); ALBUMIN 3.5 g/dL (3.4-5.0); ALKALINE PHOSPHATASE 117 U/L (46-116); ASPARTATE AMINOTRANSFERASE 18 U/L (15-37); BILIRUBIN,DIRECT 0.1 mg/dL (0.0-0.2); BILIRUBIN,TOTAL 0.4 mg/dL (0.2-1.0); LIPASE 187 U/L (73-393); TOTAL PROTEIN, SERUM 7.3 g/dL (6.4-8.2)
[2017-10-17 16:06] LABS: TROPONIN I < 0.017 ng/mL (0.00-0.056)
[2017-10-17 17:29] LABS: APPEARANCE,URINE Turbid (CLEAR); BILIRUBIN,URINE Negative (NEGATIVE); BLOOD, URINE Negative Ery/uL (NEGATIVE); COLOR,URINE Yellow (YELLOW); KETONES,URINE Negative (NEGATIVE); LEUKOCYTE ESTERASE ,URINE Large (NEGATIVE); NITRITE, URINE Positive (NEGATIVE); PH,URINE 8.5 (5.0-8.0); PROTEIN,URINE 30 mg/dl (NEGATIVE); UGLUCOSE Negative (NEGATIVE); UROBILINOGEN,URINE 0.2 EU/dL (0.2)
[2017-10-17 17:58] LABS: BACTERIA,URINE Many /HPF (None Seen)
[2017-10-17 17:59] LABS: RBC,URINE 0-2 /HPF (0-2); SQUAMOUS EPITHELIAL CELL,UR Few /HPF (None Seen)
[2017-10-17 18:00] LABS: URIC ACID CRYSTALS,URINE Moderate /HPF (None Seen); URINE AMORPHOUS URATE Many /HPF (None Seen)
[2017-10-17] MEDS ORDERED: ONDANSETRON HCL/PF 4 MG/2 ML VIAL IVP PRN (18:00)
[2017-10-17] MEDS ORDERED: MAG HYDROX/AL HYDROX/SIMETH 30 ML UDC PO PRN (18:00)
[2017-10-17] MEDS ORDERED: MAGNESIUM HYDROXIDE 30 ML UDC PO PRN (18:00)
[2017-10-17] MEDS ORDERED: ACETAMINOPHEN 325 MG TABLET PO PRN (18:00)
[2017-10-17] MEDS ORDERED: POTASSIUM CHLORIDE 20 MEQ TAB.PRT.SR PO ONE (18:00)
[2017-10-17] MEDS ORDERED: TRAZODONE 50 MG TABLET PO PRN (18:00)
[2017-10-17] MEDS ORDERED: HYDROCODONE/APAP 5/325MG 1 EACH TABLET PO PRN (18:00)
[2017-10-17] MEDS ORDERED: Z GUARD REMEDY 2 OZ OINT TP PRN (18:00)
[2017-10-17 20:00] VITALS: BP 151/93
[2017-10-17] MEDS: IV NS 0.9% 1,000 ML IV PRN (20:40)
[2017-10-17] MEDS: CARBIDOPA/LEVODOPA 25/100 MG 1 UDTAB PO SCH (21:00)
[2017-10-17] MEDS: TEMAZEPAM 15 MG CAPSULE PO PRN (23:35)
[2017-10-18 00:16] VITALS: BP 126/75
[2017-10-18 04:00] VITALS: BP 133/89
[2017-10-18] MEDS ORDERED: POTASSIUM CHLORIDE 20 MEQ TAB.PRT.SR PO ONE (04:10)
[2017-10-18 06:29] LABS: BASOPHILS % (AUTO) 0.3 % (0.0-2.0); EOSINOPHILS % (AUTO) 0.9 % (0.0-6.0); HEMATOCRIT 38 % (39-51); HEMOGLOBIN 12.2 g/dL (13.5-17.5); LYMPHOCYTES # (AUTO) 1.9 /CMM (0.8-4.8); LYMPHOCYTES % (AUTO) 18.7 % (20.0-44.0); MEAN CORPUSCULAR HEMOGLOBIN 29 PG (26.0-33.0); MEAN CORPUSCULAR HGB CONC 32 g/dl (31.0-36.0); MEAN CORPUSCULAR VOLUME 92 fL (80-96); MONOCYTES # (AUTO) 0.7 /CMM (0.1-1.30); MONOCYTES % (AUTO) 6.5 % (2.0-12.0); NEUTROPHILS # (AUTO) 7.4 /CMM (1.8-8.9); NEUTROPHILS % (AUTO) 73.6 % (43.0-81.0); PLATELET COUNT (AUTO) 337 /CMM (150-450); RDW COEFFICIENT OF VARIATION 13.9 (11.5-15.0); RED BLOOD CELL COUNT(AUTO) 4.16 MIL/uL (4.5-6.0); WHITE BLOOD COUNT (AUTO) 10.1 K/uL (4.3-11.0)
[2017-10-18 06:32] LABS: CALCIUM, SERUM 8.4 mg/dL (8.5-10.1); CARBON DIOXIDE 28 mmol/L (21-32); CHLORIDE 107 mmol/L (98-107); CREATININE 0.9 mg/dL (0.6-1.3); GLUCOSE 98 mg/dL (74-106); MAGNESIUM 1.8 mg/dL (1.8-2.4); PHOSPHORUS 3.2 mg/dL (2.5-4.9); POTASSIUM 3.7 mmol/L (3.5-5.1); SODIUM SERUM 143 mmol/L (136-145); UREA NITROGEN, BLOOD 18 mg/dL (7-18)
[2017-10-18 07:09] LABS: CHOLESTEROL 178 mg/dL (<200); HDL CHOLESTEROL 45 mg/dL (40-60); LDL 126 mg/dL (0-99); THYROID STIMULATING HORMONE 2.086 uIU/mL (0.358-3.74); TRIGLYCERIDES 108 mg/dL (30-150)
[2017-10-18] MEDS ORDERED: PANTOPRAZOLE 40 MG TABLET.DR PO SCH (07:30)
[2017-10-18] MEDS ORDERED: Medication Not On Formulary EA (Omeprazole 20 MG) PO SCH (07:30)
[2017-10-18 08:00] VITALS: BP 173/95
[2017-10-18] MEDS: CARBIDOPA/LEVODOPA 25/100 MG 1 UDTAB PO SCH ×4 (08:21→20:52)
[2017-10-18] MEDS ORDERED: CLOPIDOGREL BISULFATE 75 MG TABLET PO SCH (09:00)
[2017-10-18] MEDS ORDERED: HYDROCHLOROTHIAZIDE 25 MG TABLET PO SCH (09:00)
[2017-10-18] MEDS ORDERED: VALSARTAN 80 MG TABLET PO SCH (09:00)
[2017-10-18] MEDS ORDERED: CEPHALEXIN MONOHYDRATE 500 MG CAPSULE PO SCH (09:00)
[2017-10-18 12:00] VITALS: BP 161/100
[2017-10-18] MEDS ORDERED: CEFTRIAXONE 2 G in IV NS 0.9% 100 ML IV SCH (12:00)
[2017-10-18] MEDS ORDERED: CEFTRIAXONE 2 G in IV D5W 100 ML IV SCH (12:00)
[2017-10-18 16:00] VITALS: BP 146/88
[2017-10-18] MEDS ORDERED: ALLA266C2 TP (17:29)
[2017-10-18] MEDS ORDERED: VALS80TA2 PO (17:29)
[2017-10-18] MEDS ORDERED: PANT40TA2 PO (17:29)
[2017-10-18] MEDS ORDERED: MAG30ORA PO (17:29)
[2017-10-18] MEDS ORDERED: HYDR-3972 PO (17:29)
[2017-10-18] MEDS ORDERED: ONDA4VIA30 IVP (17:29)
[2017-10-18] MEDS ORDERED: [UNRECOGNIZED DRUG - CODE] IV (17:29)
[2017-10-18] MEDS ORDERED: ACET325T53 PO (17:29)
[2017-10-18] MEDS ORDERED: HYDR25TA4 PO (17:29)
[2017-10-18] MEDS ORDERED: MAGN400O6 PO (17:29)
[2017-10-18] MEDS: IV NS 0.9% 1,000 ML IV PRN (18:01)
[2017-10-18 20:00] VITALS: BP 106/69
[2017-10-18] MEDS ORDERED: CEFEPIME 1 GM in IV D5W 50 ML IV SCH (21:00)
[2017-10-18] MEDS: TEMAZEPAM 15 MG CAPSULE PO PRN (22:02)
== END 2017-10-18 23:25 | disposition short-term general hospital (02) | DRG 422 ==
LOC: ER 15:17 → TELE 17:40
PROVIDERS: ADMIT Registered Nurse; ATTEND Registered Nurse
DX: E86.0 Dehydration (principal); G20 Parkinson's disease; I69.954 Hemiplegia and hemiparesis following unspecified cerebrovascular disease affecting left non-dominant side; R55 Syncope and collapse; N39.0 Urinary tract infection, site not specified; B96.89 Other specified bacterial agents as the cause of diseases classified elsewhere; I10 Essential (primary) hypertension; E87.6 Hypokalemia; E78.5 Hyperlipidemia, unspecified; N31.2 Flaccid neuropathic bladder, not elsewhere classified; J44.9 Chronic obstructive pulmonary disease, unspecified
CPT/HCPCS: 36415; 71045-TC; 80048-TC; 80061-TC; 80076-TC; 81000-TC; 83605-TC; 83690-TC; 83735-TC; 84100-TC; 84443-TC; 84484-TC; 85025-TC; 87040-TC; 87081-TC; 87086-TC; 87186-TC; 93307-TC; 93880-TC; A4349; A4606; J0692; J0696; J3490; J7030; J7060; Z7610